=== PATIENT | male | born 1985 | race Caucasian/White ===

== ENCOUNTER → 2019-11-20 08:27 | Outpatient (BNVA) | payer MEDICAID, SELFPAY | PROVIDERS: Family Provider Family Medicine; PCP Family Medicine; Visit Provider Psychiatry & Neurology Psychiatry | DX: F33.1 Major depressive disorder, recurrent, moderate (principal); F43.12 Post-traumatic stress disorder, chronic | CPT/HCPCS: 99204 ==

== ENCOUNTER → 2019-12-18 08:20 | Outpatient (BNVA) | payer MEDICAID, SELFPAY | PROVIDERS: Family Provider Family Medicine; PCP Family Medicine; Visit Provider Psychiatry & Neurology Psychiatry | DX: F33.1 Major depressive disorder, recurrent, moderate (principal); F43.12 Post-traumatic stress disorder, chronic; F17.210 Nicotine dependence, cigarettes, uncomplicated | CPT/HCPCS: 99213 ==

== ENCOUNTER → 2020-03-21 09:32 | Outpatient (BNVA) | payer MEDICAID, SELFPAY | PROVIDERS: Family Provider Family Medicine; PCP Family Medicine; Visit Provider Psychiatry & Neurology Psychiatry | DX: F33.1 Major depressive disorder, recurrent, moderate (principal); F43.12 Post-traumatic stress disorder, chronic | CPT/HCPCS: 99213 ==

== ENCOUNTER → 2020-04-22 09:00 | Outpatient (BNVA) | payer MEDICAID, SELFPAY | PROVIDERS: Family Provider Family Medicine; PCP Family Medicine; Visit Provider Counselor Mental Health | DX: F43.12 Post-traumatic stress disorder, chronic (principal) | CPT/HCPCS: 90832 ==

== ENCOUNTER → 2020-04-25 08:25 | Outpatient (BNVA) | payer MEDICAID, SELFPAY | PROVIDERS: Family Provider Family Medicine; PCP Family Medicine; Visit Provider Psychiatry & Neurology Psychiatry | DX: F33.1 Major depressive disorder, recurrent, moderate (principal); F43.12 Post-traumatic stress disorder, chronic | CPT/HCPCS: 99214 ==

== ENCOUNTER → 2020-06-08 10:25 | Outpatient (BNVA) | payer MEDICAID, SELFPAY | PROVIDERS: Family Provider Family Medicine; PCP Family Medicine; Referring Provider Family Medicine; Visit Provider Anesthesiology Pain Medicine | DX: G89.29 Other chronic pain (principal); M54.41 Lumbago with sciatica, right side; M54.9 Dorsalgia, unspecified; F17.210 Nicotine dependence, cigarettes, uncomplicated | CPT/HCPCS: 99203 ==

== ENCOUNTER 2022-04-09 09:29 | Emergency (ER) | payer MEDICAID, SELFPAY ==
[2022-04-09 09:36] VITALS: BP 127/85; PULSE 114; RESP 17; TEMP 36.8; O2SAT 98; BMI 22.6
[2022-04-09] MEDS: LORazepam 2 mg Tablet PO (09:53)
[2022-04-09 10:07] VITALS: BP 118/74; PULSE 101; RESP 16; O2SAT 95
--- NOTE | 2022-04-09 10:11 | ED_ITS ---
HPI - Anxiety General: Chief Complaint: Anxiety Stated Complaint: Possible Seizure Time Seen by Provider: 04/09/22 09:40 Source: patient Mode of arrival: ambulatory Limitations: no limitations History of Present Illness: 37-year-old male has a history of seizures states he supposed to be on meds for seizures but is not been taking for quite some time he last had a seizure roughly 1 to 2 weeks ago states he is at work today and had 2 witnessed seizures. Last 1 was roughly 45 minutes ago he states he feels back to his baseline he never hit his head denies any headache he had no vomiting no diarrhea no fever. Associated symptoms: Deny chest pain, chills, fever(s), nausea or vomiting Review of Systems Const: Denies: fever(s), chills, body aches or change in appetite Eyes: Denies: blurry vision or eye discomfort ENMT: Denies: throat pain or dental pain Card: Denies: chest pain Resp: Denies: dyspnea GI: Denies: abdominal pain, nausea, vomiting or diarrhea : Denies: dysuria Musc: Denies: neck pain or back pain Skin/Breast: Denies: rash Neuro: Reports: seizure-like activity Psych: Denies: depression Dawit/Lymph: Denies: easy bruising All/Imm: Denies: urticaria PFSH ED PFSH: Medical History Chronic back pain Hx of seizure disorder Surgical History Hx of abdominal surgery Family History (Updated 06/08/20 @ 11:05 by DANNIE Parker) Father Cancer Social History Smoking and tobacco status: current every day smoker Alcohol intake: never Current gender identity: Male Physical Exam Const: COMMON NORMALS: no acute distress, patient oriented x3 and healthy appearing HENMT: COMMON NORMALS: normocephalic and atraumatic HEAD & SCALP: n ormocephalic and atraumatic Eye: COMMON NORMALS: Equal, round and reactive pupils present and EOMs intact bilaterally PUPIL: Yes Equal, round and reactive pupils present Neck/C-Spine: COMMON NORMALS: full ROM and supple Chest: COMMONS NORMALS: normal inspection of the chest and normal palpation of entire chest wall Resp: COMMON NORMALS: normal respiratory effort, No retractions, No use of accessory muscles and clear to auscultation bilaterally AUSCULTATION: clear to auscultation bilaterally Cardio: COMMON NORMALS: regular rate, regular rhythm and No murmurs present (Cardio) RATE: regular rate RHYTHM: regular rhythm GI: COMMON NORMALS: Normal to inspection, nondistended, normoactive bowel sounds present, Soft to palpation, non-tender and no masses PALPATION: Yes Soft to palpation Extremity: COMMON NORMALS: normal to inspection and full ROM Neuro: COMMON NORMALS: patient oriented x3, moves all extremities and no focal motor deficits Psych: COMMON NORMALS: mental status grossly normal, Normal thought process present and cooperative THOUGHT PROCESS: Normal thought process present Skin: COMMON NORMALS: no rashes or lesions noted and no wounds GENERAL SKIN EXAM: no rashes or lesions noted Course Vital Signs: Vital signs: Vital Signs Temperature 98.2 F 04/09/22 09:36 Pulse Rate 101 H 04/09/22 10:07 Respiratory Rate 16 04/09/22 10:07 Blood Pressure 118/74 04/09/22 10:07 Pulse Oximetry 95 04/09/22 10:07 Oxygen Delivery Me thod 04/09/22 10:07 MDM - Anxiety Medical Decision Making Patient presents here with a seizure he is well-appearing here he is back to his baseline electrolytes are normal he has a long history of seizures we will start him on Keppra getting follow-up with neurology. Lab Data : 04/09/22 10:00 Laboratory Results Sodium 138 mmol/L (136-145) 04/09/22 10:00 Potassium 4.5 mmol/L (3.5-5.1) 04/09/22 10:00 Chloride 106 mmol/L (98-107) 04/09/22 10:00 Carbon Dioxide 25 mmol/L (22-29) 04/09/22 10:00 Anion Gap 11.5 (5-19) 04/09/22 10:00 BUN 19 mg/dL (6-20) 04/09/22 10:00 Creatinine 1.4 mg/dL (0.7-1.2) H 04/09/22 10:00 GFR Calculation 57.7 mL/min (90-130) L 04/09/22 10:00 Glucose 107 mg/dL (65-115) 04/09/22 10:00 Calculated Osmolality 289 mOsm/kg (285-295) 04/09/22 10:00 Calcium 9.4 mg/dL (8.5-10.5) 04/09/22 10:00 Discharge Plan Discharge Patient Disposition: Home Clinical Impression: Seizure Condition: Stable Prescriptions: New Keppra 500 mg tablet 500 mg PO BID Qty: 60 1RF No Action doxepin 50 mg capsule 50 mg PO .HS Qty: 30 2RF prazosin 5 mg capsule 5 mg PO .HS Qty: 30 2RF duloxetine 60 mg capsule,delayed release(DR/EC) 60 mg PO DAILY Qty: 30 2RF duloxetine 30 mg capsule,delayed release(DR/EC) 30 mg PO DAILY Qty: 30 2RF baclofen 10 mg tablet 10 mg PO .1/2-1 HS doxepin 25 mg capsule 25 mg PO DAILY clonidine HCl 0.1 mg tablet 0.1 mg PO TID PRN diphenhydramine HCl [Sleep Aid (diphenhydramine)] 25 mg capsule 25 mg PO QID PRN Discharge Orders: Discharge ED (Routine); Ordered 04/09/22 Ordered By: Laura Penny Referrals: Nae Urena MD [Physician] - 1-3 days Alberto Cotton [Primary Care Provider] - Discharge Diet: Advance as tolerated Discharge Activity: Resume usual activity Patient Instructions: Recurrent Seizures in Adults (ED) Coding Level of Care Code ED Computer Help Desk Representative for Chg Fwd Exam Comprehensive
[2022-04-09 10:54] LABS: Anion Gap 11.5 (5-19); Blood Urea Nitrogen 19 mg/dL (6-20); Calcium 9.4 mg/dL (8.5-10.5); Carbon Dioxide 25 mmol/L (22-29); Chloride 106 mmol/L (98-107); Glomerular Filtration Rate 57.7 mL/min (90-130); Glucose 107 mg/dL (65-115); Osmolality Calculated 289 mOsm/kg (285-295); Potassium 4.5 mmol/L (3.5-5.1); Sodium 138 mmol/L (136-145)
[2022-04-09 11:18] VITALS: PULSE 89; RESP 14; O2SAT 96
--- NOTE | 2022-04-09 13:58 | DCPLANNER ---
Addendum entered by Randi Blanton 07/10/22 15:51: Patient had a follow up appointment scheduled with neurology - patient did attend appointment. Addendum entered by Randi Blanton 04/13/22 10:46: Patient has a follow up appointment scheduled for Saturday, April 25, 2022 at 10:[address] Urena at neurology. Clinic will call patient with appointment information. Original Note: corporate training manager had message to schedule a follow up appointment for patient with neurology. corporate training manager sent patients information to the front office staff at neurology. Patients information will be printed and reviewed. Clinic will call patient with appointment information.
== END 2022-04-09 11:23 | disposition home or self-care (01) ==
PROVIDERS: Emergency Provider Emergency Medicine; PCP Family Medicine
DX: R56.9 Unspecified convulsions (principal); F17.210 Nicotine dependence, cigarettes, uncomplicated
CPT/HCPCS: 80048; 96365; 99284; J1953

== ENCOUNTER → 2022-04-25 10:10 | Outpatient (BNVA) | payer MEDICAID, SELFPAY | PROVIDERS: PCP Family Medicine; Referring Provider Emergency Medicine; Visit Provider Specialist | DX: F44.5 Conversion disorder with seizures or convulsions (principal); G43.901 Migraine, unspecified, not intractable, with status migrainosus; F43.12 Post-traumatic stress disorder, chronic; M54.9 Dorsalgia, unspecified; G89.29 Other chronic pain | CPT/HCPCS: 99204; 99205 ==

== ENCOUNTER → 2022-07-30 12:04 | Outpatient (BNVA) | payer MEDICAID, SELFPAY | PROVIDERS: PCP Family Medicine; Visit Provider Specialist | DX: F44.5 Conversion disorder with seizures or convulsions (principal); G43.711 Chronic migraine without aura, intractable, with status migrainosus | CPT/HCPCS: 99214 ==